=== PATIENT | female | born 1950 | race Hispanic/Latino ===

== ENCOUNTER 2020-01-28 00:27 | Emergency (ER) | payer MEDICARE, OTHER ==
--- OUTSIDE RECORDS SUMMARY | 2020-01-28 00:30 | XMS REPORT ---
:1950 Author Organization eClinicalWorks Care Team Providers Name Role Phone Carmelo Kimball Provider Role Unavailable Allergies, Adverse Reactions, Alerts Substance Reaction Event Type Penicllin Info Not Available Drug Allergy Problems Problem Type Condition Code Onset Dates Condition Statu s Assessment Pain, joint, knee, left M25.562 Acti ve Problem Primary osteoarthritis of left knee M17.12 Active Assessment Primary osteoarthritis of left knee M17.12 Active Assessment Pes anserinus bursitis of left knee M70.52 Active Medications Medication Code Code Instructions Start End Status Dosage System Date Date Hydrochlorothiazide [facility] [place] 13169046258 25 MG Oral Activ e TAKE 1 TABLET BY MOUTH EVERY DAY Atorvastatin Calcium [facility] [place] 2] 96466034986 10 MG Oral Acti ve TAKE 1 TABLET BY MOUTH DAILY IN EVENING Tylenol with Codeine [facility] [place]NOTE 2] 47087997001 300-30 MG Aug Activ e 1 tablet as #3 Orally every 20, needed 6 hrs 2017 Humalog Mix 50/50 [facility] [place]NOTE 2] 94003921300 (50-50) 100 Active INJECT 40 UNITS KwikPen UNIT/ML SUBCUTANEOUSLY Subcutaneous TWICE A DAY Assure Comfort [facility] [place]NOTE 2] 99348611692 - Active USE T O TEST Lancets 30G BLOOD GLUCOS E TWICE DAILY OneTouch Ultra Test [facility] [place]NOTE 2] 12911575738 - In Vitro Activ e USE TO TEST BLOOD GLUCOSE TWICE DAILY [employer] Choice [facility] [place]NOTE 2] 34149020459 33G X 4 MM Active UUS E TO INJECT Comfort EZ INSULIN TWICE DAILY Metformin HCl [facility] [place]NOTE 2] 21034970575 1000 MG Oral Active T TERRIE 1 TABLET BY MOUTH TWICE A DAY Levothyroxine Sodium ND 95735661725 75 MCG Orally A ctive 1 tablet on an Once a day empty stomach in the morning Lisinopril [facility] [place]NOTE 2] 02105992445 20 MG Orally Aug Active 1 ta blet Once a day 2017 Results No Known Results Summary Purpose eClinicalWorks Submission
--- OUTSIDE RECORDS SUMMARY | 2020-01-28 00:30 | XMS REPORT ---
:1950 Author Organization [facility] t Address [address] [place] [address] Care Team Providers Name Role Phone Unavailable Unavailable Unavailable Problems Condition Condition Condition Status Onset Resolution Last Treatin g Comments Name Details Category Date Date Treatment Clinician Date Pain, Pain, Diagnosis Active joint, joint, knee, left knee, left Primary Primary Problem Active osteoarthri osteoarthri tis of left tis of left knee knee Allergies, Adverse Reactions, Alerts Allergy Allergy Status Severity Reaction(s) Onset Inactive Treating C omments Name Type Date Date Clinician Penicllin Adverse Active Info Not Reaction Available Medications Ordered Filled Start Stop Current Ordering Indication Dosage Frequency Signature Comments Components Medication Medication Date Date Medication? Clinician (SIG) Name Name Lisinopril Lisinopril Yes Carmelo 1 table t 8-20 Kimball 00:00: 00 Hydrochloro Hydrochloro Yes Carmelo TAKE 1 thiazide thiazide Kimball TABLET BY MOUTH EVERY DAY Humalog Mix Humalog Mix Yes Carmelo INJECT 40 50/50 50/50 Kimball UNITS KwikPen KwikPen SUBCUTANEO USLY TWICE A DAY Assure Assure Yes Carmelo USE TO Comfort Comfort Kimball TEST BLOOD Lancets 30G Lancets 30G GLUCOSE TWICE DAILY OneTouch OneTouch Yes Carmelo USE TO Ultra Test Ultra Test Kimball TEST BLOOD GLUCOSE TWICE DAILY [place] [employer] Yes Carmelo UUSE TO Choice Choice Kimball INJECT Comfort EZ Comfort EZ INSULIN TWICE DAILY Metformin Metformin Yes Carmelo TAKE 1 HCl HCl Kimball TABLET BY MOUTH TWICE A DAY Levothyroxi Levothyroxi Yes Carmelo 1 tabl et ne Sodium ne Sodium Kimball on an empty stomach in the morning Encounters Start End Encounter Admission Attending Care Care Encounter Date/Time Date/Time Type Type Clinicians Facility Department ID 2019-10-21 2019-10-21 Outpatient [facility] [id number] 09:07:00 09:07:00 2019-08-27 2019-08-27 [id number] 18:03:00 18:03:00 2018-10-25 2018-10-25 [facility] [id number] 13:30:00 13:30:00 [facility] 2018-06-25 2018-06-25 [facility] [id number] 15:30:00 15:30:00 [facility] 2018-06-18 2018-06-18 [facility] [id number] 15:30:00 15:30:00 [facility] 2018-06-11 2018-06-11 [facility] [id number] 11:00:00 11:00:00 [facility] 2018-05-21 2018-05-21 [facility] [id number] 10:30:00 10:30:00 [facility]
--- OUTSIDE RECORDS SUMMARY | 2020-01-28 00:31 | XMS REPORT ---
:1950 Author Organization eClinicalWorks Care Team Providers Name Role Phone Carmelo Kimball Provider Role Unavailable Allergies, Adverse Reactions, Alerts Substance Reaction Event Type Penicllin Info Not Available Drug Allergy Problems Problem Type Condition Code Onset Dates Condition Statu s Assessment Primary osteoarthritis of left knee M17.12 Active Problem Primary osteoarthritis of left knee M17.12 Active Assessment Pain, joint, knee, left M25.562 Acti ve Medications Medication Code Code Instructions Start End Status Dosage System Date Date Metformin HCl [facility] 23832896578 1000 MG Oral Active T TERRIE 1 TABLET BY MOUTH TWICE A DAY Lipitor [facility] 32650767151 10 MG Active TAKE 1 TABLE T EVERY EVENING Lisinopril [facility] 83111996534 20 MG Orally Aug Active 1 ta blet Once a day 2017 OneTouch Ultra Test [facility] 23148610553 - In Vitro Activ e USE TO TEST BLOOD GLUCOSE TWICE DAILY Levothyroxine Sodium [facility] 85462517655 75 MCG Orally A ctive 1 tablet on an Once a day empty stomach in the morning Tylenol with Codeine [facility] 59707877985 300-30 MG Aug Activ e 1 tablet as #3 Orally every 20, needed 6 hrs 2017 Atorvastatin Calcium [facility] 86097579555 10 MG Oral Acti ve TAKE 1 TABLET BY MOUTH DAILY IN EVENING Assure Comfort [facility] 60129006961 - Active USE T O TEST Lancets 30G BLOOD GLUCOS E TWICE DAILY Hydrochlorothiazide [facility] 11916418379 25 MG Oral Activ e TAKE 1 TABLET BY MOUTH EVERY DAY Humalog Mix 50/50 [facility] 70705124311 (50-50) 100 Active INJECT 40 UNITS KwikPen UNIT/ML SUBCUTANEOUSLY Subcutaneous TWICE A DAY [place] Choice [facility] 89937361635 33G X 4 MM Active UUS E TO INJECT Comfort EZ INSULIN TWICE DAILY Results No Known Results Summary Purpose eClinicalWorks Submission
--- OUTSIDE RECORDS SUMMARY | 2020-01-28 00:31 | XMS REPORT ---
[...] Start End Status Dosage System Date Date Humalog Mix 50/50 [facility] 25389521557 (50-50) 100 Active INJECT 40 UNITS KwikPen UNIT/ML SUBCUTANEOUSLY Subcutaneous TWICE A DAY Lisinopril [facility] 36177834379 20 MG Orally Aug Active 1 ta blet Once a day 2017 Levothyroxine Sodium [facility] 54661565866 75 MCG Orally A ctive 1 tablet on an Once a day empty stomach in the morning Metformin HCl [facility] 72411779932 1000 MG Oral Active T TERRIE 1 TABLET BY MOUTH TWICE A DAY OneTouch Ultra Test [facility] 63516763305 - In Vitro Activ e USE TO TEST BLOOD GLUCOSE TWICE DAILY Assure Comfort [facility] 89381368656 - Active USE T O TEST Lancets 30G BLOOD GLUCOS E TWICE DAILY Hydrochlorothiazide [facility] 48292130681 25 MG Oral Activ e TAKE 1 TABLET BY MOUTH EVERY DAY [place] Choice [facility] 73774951518 33G X 4 MM Active UUS E TO INJECT Comfort EZ INSULIN TWICE DAILY Results No Known Results Summary Purpose eClinicalWorks Submission
--- OUTSIDE RECORDS SUMMARY | 2020-01-28 00:31 | XMS REPORT ---
[...] Start End Status Dosage System Date Date [place] Choice [facility] 22155249690 33G X 4 MM Active UUS E TO INJECT Comfort EZ INSULIN TWICE DAILY OneTouch Ultra Test [facility] 15371566538 - In Vitro Activ e USE TO TEST BLOOD GLUCOSE TWICE DAILY Atorvastatin Calcium [facility] 71306372262 10 MG Oral Acti ve TAKE 1 TABLET BY MOUTH DAILY IN EVENING Humalog Mix 50/50 [facility] 30385983755 (50-50) 100 Active INJECT 40 UNITS KwikPen UNIT/ML SUBCUTANEOUSLY Subcutaneous TWICE A DAY Hydrochlorothiazide [facility] 41323368836 25 MG Oral Activ e TAKE 1 TABLET BY MOUTH EVERY DAY Metformin HCl [facility] 52599391078 1000 MG Oral Active T TERRIE 1 TABLET BY MOUTH TWICE A DAY Assure Comfort [facility] 54072501020 - Active USE T O TEST Lancets 30G BLOOD GLUCOS E TWICE DAILY Tylenol with Codeine [facility] 47611656040 300-30 MG Aug Activ e 1 tablet as #3 Orally every 20, needed 6 hrs 2018 Levothyroxine Sodium [facility] 21593654385 75 MCG Orally A ctive 1 tablet on an Once a day empty stomach in the morning Lisinopril [facility] 75270328456 20 MG Orally Aug Active 1 ta blet Once a day 2017 Results No Known Results Summary Purpose eClinicalWorks Submission
--- OUTSIDE RECORDS SUMMARY | 2020-01-28 00:31 | XMS REPORT ---
[...] Start End Status Dosage System Date Date Assure Comfort [facility] 73702431193 - Active USE T O TEST Lancets 30G BLOOD GLUCOS E TWICE DAILY OneTouch Ultra Test [facility] 11847015772 - In Vitro Activ e USE TO TEST BLOOD GLUCOSE TWICE DAILY Lipitor [facility] 39644468487 10 MG Active TAKE 1 TABLE T EVERY EVENING Levothyroxine Sodium [facility] 19933410659 75 MCG Orally A ctive 1 tablet on an Once a day empty stomach in the morning Lisinopril ND 62410959668 20 MG Orally Aug Active 1 ta blet Once a day 2017 Hydrochlorothiazide [facility] 68217188426 25 MG Oral Activ e TAKE 1 TABLET BY MOUTH EVERY DAY Tylenol with Codeine [facility] 93656431016 300-30 MG Aug Activ e 1 tablet as #3 Orally every 20, needed 6 hrs 2017 [place] Choice [facility] 67082583749 33G X 4 MM Active UUS E TO INJECT Comfort EZ INSULIN TWICE DAILY Humalog Mix 50/50 [facility] 61919179033 (50-50) 100 Active INJECT 40 UNITS KwikPen UNIT/ML SUBCUTANEOUSLY Subcutaneous TWICE A DAY Metformin HCl ND 77670273343 1000 MG Oral Active T TERRIE 1 TABLET BY MOUTH TWICE A DAY Atorvastatin Calcium [facility] 69399331012 10 MG Oral Acti ve TAKE 1 TABLET BY MOUTH DAILY IN EVENING Results No Known Results Summary Purpose eClinicalWorks Submission
[2020-01-28] MEDS ORDERED: TRAMADOL HCL 50 MG TAB ONE (02:32)
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
[2020-01-28 03:02] VITALS: BP 125/56; TEMP 98; O2SAT 100
--- NOTE | 2020-01-28 08:19 | RAD REPORT ---
EXAM DESCRIPTION: RAD - Knee Left 3 View - 01/28/2020 1:31 am CLINICAL HISTORY: PAIN, fall with knee pain COMPARISON: Knee Left 3 View dated 04/25/2018 FINDINGS: No fracture, dislocation or periosteal reaction.No joint effusion seen. No joint space patricio rowing. No foreign body. Anterior contusion and edema changes are present. IMPRESSION: No acute bone or joint finding. There is anterior soft tissue contusion or edema. Clinical concerns for internal derangement or occult bony injury could be further assessed with MR im aging.
--- NOTE | 2020-01-28 12:49 | RAD REPORT ---
EXAM DESCRIPTION: CT - [id number] - 01/28/2020 6:33 am CLINICAL HISTORY: PAIN COMPARISON: None available TECHNIQUE: Axial CT of the head obtained from the skull apex to the skull base without contrast. Axi al CT images of the cervical spine obtained from the skull base through the thoracic inlet. Sagittal and coronal reformatted images available. FINDINGS: CT head: No acute intracranial hemorrhage identified. No mass, mass effect, shift of the midline, abnormal ext ra-axial fluid collection or CT evidence of acute ischemic change identified. The ventricular system and sulcal spaces compatible with mild cerebral atrophy. Scattered areas of decreased density throu ghout the supratentorial white matter are nonspecific and may represent sequela of chronic small vess el ischemic change. The visualized paranasal sinuses and the mastoids are clear. No skull fracture identified. Visualized orbits and globes are unremarkable. Cervical CT: Straightening of the cervical lordosis is likely secondary to patient positioning. The atlantoaxial , atlantodental, and occipitoatlantal intervals are preserved. No fracture identified. Vertebral adina dy height preserved. Prevertebral soft tissues are unremarkable. Mild to moderate degenerative disc height narrowing endplate spondylosis, uncovertebral spurring and facet arthropathy, most severe at C5/6 and C6/7. Mild multilevel osseous neural foraminal narrowing. Degenerative spurring of the atlantodental articulation. Visualized skull base is intact. No fracture of the visualized facial bones. Visualized mastoid air c ells and paranasal sinuses are well aerated. Visualized thyroid is unremarkable. Carotid artery atherosclerosis. No cervical lymphadenopathy. No p neumothorax in the visualized lung apices. IMPRESSION: 1. No acute intracranial abnormality. 2. No acute fracture or subluxation of the cervical spine. 3. Multilevel degenerative change of the cervical spine. This exam was performed according to our departmental dose-optimization program, which includes autom ated exposure control, adjustment of the mA and/or kV according to patient size and/or use of iterati ve reconstruction technique. Electronically signed by: Jose Armando Rosado 01/28/2020 2:05 AM CDT Due to temporary technical issues with the PACS/Fluency reporting system, reports are being signed by the in house radiologist as a courtesy to ensure prompt reporting. The interpreting radiologist is f ully responsible for the content of the report.
== END 2020-01-28 02:57 | disposition home or self-care (01) ==
LOC: ER 00:27
DX: S16.1XXA Strain of muscle, fascia and tendon at neck level, initial encounter (principal); W01.0XXA Fall on same level from slipping, tripping and stumbling without subsequent striking against object, initial encounter; Y93.01 Activity, walking, marching and hiking; Y92.009 Unspecified place in unspecified non-institutional (private) residence as the place of occurrence of the external cause; I10 Essential (primary) hypertension; Z88.0 Allergy status to penicillin
CPT/HCPCS: 70450; 72125; 99284